=== PATIENT | female | born 1990 | race Caucasian/White ===

== ENCOUNTER 2020-12-14 05:08 | Emergency (ER) | payer OTHER ==
[~2020-12-14] VITALS: Ht 149.9 cm; Wt 68.0 kg
[2020-12-14 05:12] VITALS: Ht 149.9 cm; Wt 68.0 kg
[2020-12-14] MEDS ORDERED: ZOFRAN ODT4 MG/UDTAB PO (05:22)
[2020-12-14 05:50] LABS: BASOPHILS 1.1 % (0-2); EOSINOPHILS 3.3 % (0-7); HEMATOCRIT 40.9 % (36.0-48.0); HEMOGLOBIN 13.5 g/dL (12-16); LYMPHOCYTES 32.6 % (15-50); MCH 29.7 pg (26.0-34.0); MCV 90.3 fL (80.0-100.0); MEAN PLATELET VOLUME 8.2 fL (7.4-10.4); MONOCYTES 9.9 % (2-11); NEUTROPHILS 53.1 % (40-80); PLATELET COUNT 328 10x3/uL (130-400); RBC 4.53 10x6/uL (4.00-5.40); RDW 13.5 % (11.5-14.5); WBC 11.5 10x3/uL (4.8-10.8)
[2020-12-14 06:04] LABS: CALC OSMOLALITY 286 mosm/kg (275-300); CALCIUM 8.8 mg/dL (8.5-10.1); CARBON DIOXIDE 27.9 mmol/L (21.0-32.0); CHLORIDE - SERUM 108 mmol/L (98-107); CREATININE - SERUM 0.8 mg/dL (0.6-1.3); GLUCOSE 89 mg/dL (74-106); POTASSIUM - SERUM 3.6 mmol/L (3.5-5.1); SODIUM 143 mmol/L (136-145); UREA NITROGEN 21 mg/dL (7-18); eGFR NON AFRICAN AMERICAN 89 mL/min (90-120)
[2020-12-14 06:11] LABS: ALBUMIN 3.8 g/dL (3.4-5.0); ALKALINE PHOSPHATASE 86 U/L (30-120); ALT (SGPT) 23 U/L (10-68); BILIRUBIN - TOTAL 0.24 mg/dL (0.2-1.3); LIPASE 120 U/L (73-393); PROTEIN - SERUM 7.3 g/dL (6.4-8.2)
[2020-12-14 06:44] LABS: UDS - AMPHET POSITIVE QUAL (NEGATIVE); UDS - BARB NEGATIVE QUAL (NEGATIVE); UDS - BENZO NEGATIVE QUAL (NEGATIVE); UDS - COCAINE NEGATIVE QUAL (NEGATIVE); UDS - OPIATE NEGATIVE QUAL (NEGATIVE); UDS - PCP NEGATIVE QUAL (NEGATIVE); UDS - THC POSITIVE QUAL (NEGATIVE)
[2020-12-14 06:52] LABS: BILIRUBIN NEGATIVE (NEGATIVE); KETONE NEGATIVE mg/dL (< 1+); NITRITE NEGATIVE (NEGATIVE); PH 6.5 (5.0-8.0); UROBILINOGEN NORMAL mg/dL (< 2)
[2020-12-14 06:53] LABS: HCG URINE NEGATIVE (NEGATIVE)
[2020-12-14 07:40] VITALS: BP 105/69
== END 2020-12-14 07:41 | disposition home or self-care (01) ==
LOC: D.ER 05:08
PROVIDERS: Family Medicine
DX: R11.2 Nausea with vomiting, unspecified (principal)